=== PATIENT | female | born 1980 | race Caucasian/White ===

== ENCOUNTER → 2020-02-23 | Outpatient (CLI) | payer BC | LOC: MERGE 07:26 → LABNPT 07:26 | PROVIDERS: ATTEND Orthopaedic Surgery | DX: Z20.828 Contact with and (suspected) exposure to other viral communicable diseases (principal) | CPT/HCPCS: 87635 ==

== ENCOUNTER → 2020-04-29 | Outpatient (CLI) | payer BC ==
--- NOTE | 2020-04-29 13:19 | Diagnostic Imaging Report ---
PROCEDURE: CT sinuses without contrast. TECHNIQUE: Multiple contiguous axial images were obtained through the sinuses without the use of intravenous contrast. Coronal and sagittal reformations were then performed. Auto Exposure Controls were utilized during the CT exam to meet ALARA standards for radiation dose reduction. INDICATION: Sinusitis. FINDINGS: There is mucosal thickening in the right half of the frontal sinus. There is significant thickening and opacification of bilateral ethmoid air cells. There is some minimal mucosal thickening involving the sphenoid sinus. The right maxillary sinus is nearly completely opacified. There is a probable large mucus retention cyst or polyp in the inferior left maxillary sinus. Nasal septum is midline. There is opacification of the ostiomeatal complexes bilaterally. Mastoids are well aerated. IMPRESSION: Significant paranasal sinus mucosal disease. Dictated by: Dictated on workstation # [id number]
== END ==
LOC: RAD 12:17
PROVIDERS: ATTEND Otolaryngology Otolaryngology/Facial Plastic Surgery
DX: J32.8 Other chronic sinusitis (principal)
CPT/HCPCS: 70486

== ENCOUNTER 2020-05-11 05:37 | Outpatient (CLI) | payer BC ==
[~2020-05-11] VITALS: Ht 165.1 cm; Wt 92.3 kg
[2020-05-11 09:05] LABS: BASOPHILS % (AUTO) 0 % (0-10); EOSINOPHILS # (AUTO) 0.4 10^3/uL (0.0-0.3); EOSINOPHILS % (AUTO) 5 % (0-10); HEMATOCRIT 39 % (35-52); HEMOGLOBIN 13.4 G/DL (11.5-16.0); LYMPHOCYTES # (AUTO) 2.6 X 10^3 (1.0-4.0); LYMPHOCYTES % (AUTO) 33 % (12-44); MEAN CORPUSCULAR HEMOGLOBIN 31 PG (25-34); MEAN CORPUSCULAR HGB CONC 34 G/DL (32-36); MEAN CORPUSCULAR VOLUME 92 FL (80-99); MEAN PLATELET VOLUME 9.6 FL (7.4-10.4); MONOCYTES # (AUTO) 0.5 X 10^3 (0.0-1.0); MONOCYTES % (AUTO) 6 % (0-12); NEUTROPHILS # (AUTO) 4.4 X 10^3 (1.8-7.8); NEUTROPHILS % (AUTO) 56 % (42-75); PLATELET COUNT 251 10^3/uL (130-400); RED CELL DISTRIBUTION WIDTH 12.9 % (10.0-14.5); WHITE BLOOD COUNT 7.9 10^3/uL (4.3-11.0)
[2020-05-11 09:22] LABS: BUN/CREATININE RATIO 8; CALCIUM 8.4 MG/DL (8.5-10.1); CARBON DIOXIDE 22 MMOL/L (21-32); CHLORIDE 105 MMOL/L (98-107); CREATININE SERUM 0.99 MG/DL (0.60-1.30); GFR ESTIMATED > 60; GLUCOSE 91 MG/DL (70-105); POTASSIUM 3.8 MMOL/L (3.6-5.0); SODIUM 137 MMOL/L (135-145)
[2020-05-11 09:31] VITALS: BP 132/86
== END 2020-05-11 09:47 | disposition home or self-care (01) ==
LOC: PREOP 05:37
PROVIDERS: ATTEND Otolaryngology Otolaryngology/Facial Plastic Surgery
DX: Z01.812 Encounter for preprocedural laboratory examination (principal); J34.2 Deviated nasal septum; J34.3 Hypertrophy of nasal turbinates; J32.9 Chronic sinusitis, unspecified; Z20.828 Contact with and (suspected) exposure to other viral communicable diseases
CPT/HCPCS: 80048; 84703; 85025; 87081; U0002; 36415; 87635

== ENCOUNTER 2020-05-13 06:03 | Day surgery (SDC) | payer BC ==
[2020-05-13] VITALS (11 sets, daily range): BP systolic 105–127; BP diastolic 64–83
[~2020-05-13] VITALS: Ht 165 cm; Wt 92.0 kg
[2020-05-13] MEDS ORDERED: CEFUROXIME INJECTION 750 MG in WATER (STERILE) FOR INJECTION 7.5 ML IV ONE (06:30)
[2020-05-13] MEDS ORDERED: CATHETER FLUSH 10 ML SYR IV PRN (06:30)
[2020-05-13] MEDS ORDERED: HYDROCORTISONE 100 MG/2 ML (Solu-CORTEF) VIAL IV ONE (06:30)
--- NOTE | 2020-05-13 06:30 | Progress Note-Pre Operative ---
Pre-Operative Progress Note H&P Reviewed The H&P was reviewed, patient examined and no changes noted. Date Seen by Provider: May 13, 2020 Time Seen by Provider: 06:30 Date H&P Reviewed: May 13, 2020 Time H&P Reviewed: : Pre-Operative Diagnosis: Bilat Chronic Sinusitis, Bialt Hyper of Inf Turbs, Dev Septum ESTHER ROSARIO MD May 13, 2020 6:30 am
[2020-05-13] MEDS ORDERED: MIDAZOLAM 2 MG/2 ML (VERSED) VIAL ONE ×2 (06:39→07:03)
[2020-05-13] MEDS ORDERED: MIDAZOLAM 2 MG/2 ML (VERSED) VIAL IV ONE (06:45)
[2020-05-13] MEDS: LACTATED RINGERS 1,000 ML IV PRN ×2 (06:48→09:02)
[2020-05-13] MEDS ORDERED: fentaNYL INJECTION 100 MCG/2 ML AMP ONE (07:03)
[2020-05-13] MEDS ORDERED: LIDOCAINE PF 2% 5 ML (XYLOCAINE) VIAL ONE (07:09)
[2020-05-13] MEDS ORDERED: ROCURONIUM 10 MG/ML 5 ML SYRINGE IV ONE (07:09)
[2020-05-13] MEDS ORDERED: ONDANSETRON 4 MG/2 ML (SDV) Z0FRAN ONE (07:09)
[2020-05-13] MEDS ORDERED: proPOfol 200 MG/20 ML (DIPRIVAN) VIAL IV ONE (07:09)
[2020-05-13] MEDS ORDERED: SEVOFLURANE (ULTANE) 15 ML INHAL SOLN ONE ×4 (07:09→08:36)
[2020-05-13] MEDS ORDERED: GLYCOPYRROLATE 0.2 MG/ML (ROBINUL) 2 ML VIAL ONE (07:10)
[2020-05-13] MEDS ORDERED: NEOSTIGMINE 3 MG/3 ML VIAL ONE (07:10)
[2020-05-13] MEDS ORDERED: PHENYLEPHRINE 0.5% NASAL SPR (NEO-SYNEPHRINE) REG ONE (07:12)
[2020-05-13] MEDS ORDERED: COCAINE HCL 4% 2 ML SYR ONE (07:12)
[2020-05-13] MEDS ORDERED: BSS 15 ML ONE (07:12)
[2020-05-13] MEDS ORDERED: LIDOCAINE/EPI 1%-1:100,000 (XYLOCAINE) 20ML ONE (07:13)
[2020-05-13] MEDS ORDERED: D5 1/2 NS W/KCL 20 MEQ/L 1,000 ML IV SCH (08:59)
--- NOTE | 2020-05-13 08:59 | Progress Note-Post Operative ---
Post-Operative Progess Note Surgeon (s)/Therapy Administrative Assistant (s) Surgeon ESTHER ROSARIO MD Therapy Administrative Assistant n/a Pre-Operative Diagnosis Bilat Chronic Sinusitis, Bialt Hyper of Inf Turbs, Dev Septum Post-Operative Diagnosis same Post-Op Procedure Note Date of Procedure: May 13, 2020 Name of Procedure Performed: Bilat ESS, Bilat Red of Inf Turbs Description & Findings Description and Findings: n/a Anesthesia Type get Estimated Blood Loss minimal Packing none. Specimen(s) collected/removed Bialt Nasal polyps, chornic sinus disease ESTHER ROSARIO MD May 13, 2020 08:59
[2020-05-13] MEDS ORDERED: HYDROcodone/APAP 5 MG/325 MG (LORTAB) TAB PO PRN (09:00)
[2020-05-13] MEDS ORDERED: predniSONE 20 MG TAB PO ONE (09:00)
[2020-05-13] MEDS ORDERED: ACETAMINOPHEN 325 MG TABLET PO PRN (09:00)
[2020-05-13] MEDS ORDERED: PROMETHAZINE INJ 25 MG/ML (PHENERGAN) AMP IVP PRN (09:00)
[2020-05-13] MEDS ORDERED: morphine INJ 10 MG/ML 1ML (SYR OR VIAL) ONE (09:25)
[2020-05-13] MEDS ORDERED: MEPERIDINE (DEMEROL) INJ 50 MG/ML IVP ONE (09:30)
[2020-05-13] MEDS ORDERED: morphine INJ 10 MG/ML 1ML (SYR OR VIAL) IVP ONE (09:30)
[2020-05-13] MEDS ORDERED: ONDANSETRON 4 MG/2 ML (SDV) Z0FRAN IVP PRN (09:30)
[2020-05-13] MEDS ORDERED: PRD20T PO (09:59)
[2020-05-13] MEDS ORDERED: HYDR-3812 PO (09:59)
[2020-05-13] MEDS ORDERED: CEFU250T80 PO (09:59)
--- NOTE | 2020-05-13 10:15 | Anesthesia-General Post-Op ---
General Patient Condition Mental Status/LOC: Same as Preop Cardiovascular: Satisfactory Nausea/Vomiting: Absent Respiratory: Satisfactory Pain: Controlled Complications: Absent Post Op Complications Complications None Follow Up Care/Instructions Patient Instructions None needed. Anesthesia/Patient Condition Patient Condition Patient is doing well, no complaints, stable vital signs, no apparent adverse anesthesia problems. No complications reported per nursing. FALGUNI NGUYEN CRNA May 13, 2020 10:15
== END 2020-05-13 11:15 | disposition home or self-care (01) ==
LOC: SDC 06:03
PROVIDERS: ATTEND Otolaryngology Otolaryngology/Facial Plastic Surgery
DX: J32.8 Other chronic sinusitis (principal); J34.3 Hypertrophy of nasal turbinates; J34.2 Deviated nasal septum; R09.81 Nasal congestion; J33.8 Other polyp of sinus; J33.0 Polyp of nasal cavity; J34.89 Other specified disorders of nose and nasal sinuses; Z87.891 Personal history of nicotine dependence; Z88.2 Allergy status to sulfonamides

== ENCOUNTER 2021-10-25 09:05 | Day surgery (SDC) | payer BC, OTHER ==
[2021-10-25] VITALS (10 sets, daily range): BP systolic 85–102; BP diastolic 40–67
[~2021-10-25] VITALS: Ht 165 cm; Wt 86.0 kg
[~2021-10-25 09:05] MED LIST: ACHD5005 PO; CEFU250T80 PO; PRD20T PO
[2021-10-25] MEDS ORDERED: ONDANSETRON 4 MG/2 ML (SDV) Z0FRAN ONE (09:20)
[2021-10-25] MEDS ORDERED: NS IV 1000 ML 1,000 ML IV SCH (09:30)
[2021-10-25] MEDS ORDERED: KETOROLAC 30 MG/ML VIAL IV ONE (09:30)
--- NOTE | 2021-10-25 09:33 | ED GU-Female ---
General Stated Complaint: CRAMPS/LOWER BACK PAIN History of Present Illness Date Seen by Provider: Oct 25, 2021 Time Seen by Provider: 09:05 Initial Comments 41 yr F with no significant PMH, is here with c/o sudden onset of bilateral flank pain and abdominal/ pelvic cramping. Pt states she should be on the last day of her period right now with less mentrual loss. Pt has associated nausea and vomiting, with 3 episodes today, one of them being in the ER. She had one episode of diarrhea early today morning around 1:30AM, and none thereafter. Denies fever, dysuria, vaginal discharge, . Pt states her pain is a 7/10, and is constnat in nature ssince today morning. Pt has not taken any medication for this. Pt also states she drinks a lot of water everyday. No known sick contaccts. Pt is concerned for a kidney stone, which is common in her family. She does not have a history of a kidney stone in the past. Allergies and Home Medications Allergies Coded Allergies: Sulfa (Sulfonamide Antibiotics) (Verified Allergy, Unknown, "FEELS LIKE BURNING FROM INSIDE OUT, 05/11/20) Patient Home Medication List Home Medication List Reviewed: Yes Cefuroxime Axetil (Cefuroxime) 250 Mg Tablet, 250 MG PO BID Prescribed by: CARLOS COLLIER on 05/13/20958 Hydrocodone/Acetaminophen (Hydrocodone-Acetamin 5-325 mg) 1 Each Tablet, 1-2 EACH PO Q4H Prescribed by: CARLOS COLLIER on 05/13/20958 Prednisone (Prednisone) 20 Mg Tab, 0 PO UD Prescribed by: CARLOS COLLIER on 05/13/20958 Review of Systems Review of Systems Constitutional: no symptoms reported EENTM: no symptoms reported Respiratory: no symptoms reported Cardiovascular: no symptoms reported Gastrointestinal: RLQ, LLQ, diarrhea, nausea, vomiting Genitourinary: flank pain Musculoskeletal: no symptoms reported Skin: no symptoms reported All Other Systemes Reviewed Negative Unless Noted: Yes Past Rxmcjcz-Vpbire-Kvtaeh Hx Seasonal Allergies Seasonal Allergies: Yes Past Medical History Surgeries: Yes (D&C X2, L KNEE SCOPE X2) Tubal Ligation Respiratory: No Currently Using CPAP: No Currently Using BIPAP: No Cardiac: No Neurological: No Genitourinary: No Gastrointestinal: No Musculoskeletal: No Endocrine: No Cancer: No Psychosocial: No Integumentary: No Blood Disorders: No Physical Exam Vital Signs Vital Signs - First Documented 10/25/21 09:34 Temp 36.1 Pulse 64 Resp 18 B/P (MAP) 112/70 (84) Pulse Ox 93 Capillary Refill : Height, Weight, BMI Height: '" Weight: lbs. oz. kg; 33.79 BMI Method: General Appearance: mild distress HEENT: PERRL/EOMI Cardiovascular: normal peripheral pulses, regular rate, rhythm Respiratory: chest non-tender, lungs clear, normal breath sounds Gastrointestinal: normal bowel sounds, soft, no organomegaly, no pulsatile mass, tenderness (in bilateral pelvoc area), other (bilaterl CVA tenderness, gretaer on he left side) Back: no vertebral tenderness, CVA tenderness (R), CVA tenderness (L) (greater on the left) Extremities: normal range of motion Neurologic/Psychiatric: no motor/sensory deficits, alert, oriented x 3 Skin: normal color Lymphatic: no adenopathy Focused Exam Lactate Level 10/25/21 10:31: Lactic Acid Level 1.44 Lactic Acid Level Laboratory Tests Test 10/25/21 10:31 Lactic Acid Level 1.44 MMOL/L (0.50-2.00) Progress/Results/Core Measures Suspected Sepsis SIRS Temperature: Pulse: Respiratory Rate: Laboratory Tests 10/25/21 09:30: White Blood Count 16.6H Blood Pressure / Mean: 10/25/21 10:31: Lactic Acid Level 1.44 Laboratory Tests 10/25/21 09:30: Creatinine 1.11, Platelet Count 239, Total Bilirubin 0.5 Results/Orders Lab Results Laboratory Tests Test 10/25/21 09:30 10/25/21 09:55 10/25/21 10:31 Range/Units White Blood Count 16.6 H 4.3-11.0 10^3/uL Red Blood Count 4.34 3.80-5.11 10^6/uL Hemoglobin 13.5 11.5-16.0 g/dL Hematocrit 41 35-52 % Mean Corpuscular Volume 95 80-99 fL Mean Corpuscular Hemoglobin 31 25-34 pg Mean Corpuscular Hemoglobin Concent 33 32-36 g/dL Red Cell Distribution Width 12.1 10.0-14.5 % Platelet Count 239 130-400 10^3/uL Mean Platelet Volume 10.1 9.0-12.2 fL Immature Granulocyte % (Auto) 1 % Neutrophils (%) (Auto) 77 H 42-75 % Lymphocytes (%) (Auto) 15 12-44 % Monocytes (%) (Auto) 6 0-12 % Eosinophils (%) (Auto) 2 0-10 % Basophils (%) (Auto) 0 0-10 % Neutrophils # (Auto) 12.8 H 1.8-7.8 10^3/uL Lymphocytes # (Auto) 2.5 1.0-4.0 10^3/uL Monocytes # (Auto) 1.0 0.0-1.0 10^3/uL Eosinophils # (Auto) 0.3 0.0-0.3 10^3/uL Basophils # (Auto) 0.1 0.0-0.1 10^3/uL Immature Granulocyte # (Auto) 0.1 0.0-0.1 10^3/uL Neutrophils % (Manual) 69 % Lymphocytes % (Manual) 15 % Monocytes % (Manual) 7 % Basophils % (Manual) 2 % Reactive Lymphocytes 7 % Blood Morphology Comment NORMAL Sodium Level 137 135-145 MMOL/L Potassium Level 4.0 3.6-5.0 MMOL/L Chloride Level 104 98-107 MMOL/L Carbon Dioxide Level 23 21-32 MMOL/L Anion Gap 10 5-14 MMOL/L Blood Urea Nitrogen 13 7-18 MG/DL Creatinine 1.11 0.60-1.30 MG/DL Estimat Glomerular Filtration Rate 65 BUN/Creatinine Ratio 12 Glucose Level 103 70-105 MG/DL Calcium Level 9.0 8.5-10.1 MG/DL Corrected Calcium 8.8 8.5-10.1 MG/DL Magnesium Level 2.0 1.6-2.4 MG/DL Total Bilirubin 0.5 0.1-1.0 MG/DL Aspartate Amino Transf (AST/SGOT) 42 H 5-34 U/L Alanine Aminotransferase (ALT/SGPT) 80 H 0-55 U/L Alkaline Phosphatase 87 40-136 U/L Total Protein 7.9 6.4-8.2 GM/DL Albumin 4.2 3.2-4.5 GM/DL Lipase 21 8-78 U/L Urine Color YELLOW Urine Clarity CLEAR Urine pH 6.0 5-9 Urine Specific [place] 1.020 1.016-1.022 Urine Protein NEGATIVE NEGATIVE Urine Glucose (UA) NEGATIVE NEGATIVE Urine Ketones NEGATIVE NEGATIVE Urine Nitrite NEGATIVE NEGATIVE Urine Bilirubin NEGATIVE NEGATIVE Urine Urobilinogen 0.2 < = 1.0 MG/DL Urine Leukocyte Esterase TRACE H NEGATIVE Urine RBC (Auto) NEGATIVE NEGATIVE Urine RBC RARE /HPF Urine WBC 2-5 /HPF Urine Squamous Epithelial Cells 2-5 /HPF Urine Crystals NONE /LPF Urine Bacteria MODERATE H /HPF Urine Casts NONE /LPF Urine Mucus NEGATIVE /LPF Urine Culture Indicated YES Lactic Acid Level 1.44 0.50-2.00 MMOL/L My Orders Orders - VALENCIA LI MD Urine Bedside (10/25/21 09:24) Ct Abd/Pelvis Wo(Kidney Stone) (10/25/21 09:24) Ed Iv/Invasive Line Start (10/25/21 09:24) Ua Culture If Indicated (10/25/21 09:24) Ketorolac Injection (Toradol Injection) (10/25/21 09:30) Ed Iv/Invasive Line Start (10/25/21 09:24) Ns Iv 1000 Ml (Sodium Chloride 0.9%) (10/25/21 09:30) Cbc With Automated Diff (10/25/21 09:39) Comprehensive Metabolic Panel (10/25/21 09:39) Magnesium (10/25/21 09:39) Ondansetron Injection (Zofran Injectio (10/25/21 09:45) Metoclopramide Injection (Reglan Injecti (10/25/21 09:44) Manual Differential (10/25/21 09:30) Lipase (10/25/21 10:19) Blood Culture (10/25/21 10:20) Lactic Acid Analyzer (10/25/21 10:20) Ceftriaxone 1 Gm Pre-Mix (Rocephin 1 Gm (10/25/21 10:30) Ct Abd/Pelv W (Appendicitis) (10/25/21 10:26) Urine Culture (10/25/21 09:55) Iohexol Injection (Omnipaque 350 Mg/Ml 1 (10/25/21 10:45) Di Iv Start (Assessment) .IV start (10/25/21 10:33) Received Contrast (Hold Metformin- Contr (10/25/21 10:45) Sodium Chloride Flush (Catheter Flush Sy (10/25/21 10:45) Ns (Ivpb) (Sodium Chloride 0.9% Ivpb Bag (10/25/21 10:45) Medications Given in ED Current Medications Medications Dose Ordered Sig/Liam Route Start Time Stop Time Status Last Admin Dose Admin Ceftriaxone Sodium/Dextrose 50 ml @ 100 mls/hr ONCE ONCE IV 10/25/21 10:30 10/25/21 10:59 DC 10/25/21 10:50 100 MLS/HR Iohexol 100 ml ONCE ONCE IV 10/25/21 10:45 10/25/21 10:52 DC 10/25/21 10:39 100 ML Ketorolac Tromethamine 15 mg ONCE ONCE IV 10/25/21 09:30 10/25/21 09:31 DC 10/25/21 10:01 15 MG Ondansetron HCl 8 mg ONCE ONCE IVP 10/25/21 09:45 10/25/21 09:47 DC 10/25/21 10:02 8 MG Sodium Chloride 10 ml NEEDED PRN IV 10/25/21 10:45 10/25/21 10:39 10 ML Sodium Chloride 100 ml ONCE ONCE IV 10/25/21 10:45 10/25/21 10:52 DC 10/25/21 10:39 80 ML Vital Signs/I&O 10/25/21 09:34 Temp 36.1 Pulse 64 Resp 18 B/P (MAP) 112/70 (84) Pulse Ox 93 Capillary Refill : Progress Note : Progress Note 1. ACUTE APPENDICITIS: - Toradol 15mg iv STAT with successful pain relief - Zofran 8mg iv STAT without resolution of symptoms, and then added Reglan 10mg iv STAT - NS 1L STAT - CT abd/ pelvis without contrast: discussed with radiologist and suspect possible left ureter stone and possible appendicitis with starnding. Radiology recommended to do CT with contrast. - CT ABD/ PELVIS WITH CONTRAST: see below - UA: trace LE and bacteria - CBC shows an elevated WBC of 16 with a left shift. Blood culture and lactic acid ordered. - Ceftriaxone 1gm iv STAT - CMP: AST and ALT elevated - urine test - Discussed with surgery, Dr. Land. Pt will be going to OR for appendectomy. Pt's last meal was last night. - Discussed with pt and pt agrees with plan. Diagnostic Imaging Diagonstic Imaging: CT Plain Films/CT/US/NM/MRI: abdomen, pelvis Comments 1. Findings suspicious for early or mild acute appendicitis. 2. Punctate left calculus within the lower left pelvis. Again, this may be on the basis of an underlying phlebolith. A distal ureteral calculus cannot be entirely excluded as a separate ureter cannot be identified. Correlation with a post contrast CT with delayed images through the pelvis may be of benefit. Reviewed: Reviewed by Me, Discussed w/Radiologist Departure Communication (Admissions) Time/Spoke to Admitting Phy: 12:00 Impression Primary Impression: Appendicitis Qualified Codes: K35.80 - Unspecified acute appendicitis Disposition: ADMITTED INPATIENT Condition: Stable Admissions Decision to Admit Reason: Admit from ER (General) Decision to Admit/Date: Oct 25, 2021 Time/Decision to Admit Time: 12:10 Departure-Patient Inst. Referrals: NO,LOCAL PHYSICIAN (PCP/Family) Primary Care Physician VALENCIA LI MD Oct 25, 2021 09:33
[2021-10-25] MEDS ORDERED: METOCLOPRAMIDE INJ 10 MG/2 ML (REGLAN) IVP STA (09:44)
[2021-10-25] MEDS ORDERED: ONDANSETRON 4 MG/2 ML (SDV) Z0FRAN IVP ONE (09:45)
[2021-10-25 09:47] LABS: BASOPHILS # (AUTO) 0.1 10^3/uL (0.0-0.1); BASOPHILS % (AUTO) 0 % (0-10); EOSINOPHILS # (AUTO) 0.3 10^3/uL (0.0-0.3); EOSINOPHILS % (AUTO) 2 % (0-10); HEMATOCRIT 41 % (35-52); HEMOGLOBIN 13.5 g/dL (11.5-16.0); LYMPHOCYTES # (AUTO) 2.5 10^3/uL (1.0-4.0); LYMPHOCYTES % (AUTO) 15 % (12-44); MEAN CORPUSCULAR HEMOGLOBIN 31 pg (25-34); MEAN CORPUSCULAR HGB CONC 33 g/dL (32-36); MEAN CORPUSCULAR VOLUME 95 fL (80-99); MEAN PLATELET VOLUME 10.1 fL (9.0-12.2); MONOCYTES % (AUTO) 6 % (0-12); NEUTROPHILS # (AUTO) 12.8 10^3/uL (1.8-7.8); NEUTROPHILS % (AUTO) 77 % (42-75); PLATELET COUNT 239 10^3/uL (130-400); WHITE BLOOD COUNT 16.6 10^3/uL (4.3-11.0)
[2021-10-25 09:51] LABS: ALBUMIN 4.2 GM/DL (3.2-4.5)
[2021-10-25 09:54] LABS: TOTAL PROTEIN 7.9 GM/DL (6.4-8.2)
[2021-10-25 09:55] LABS: BILIRUBIN,TOTAL 0.5 MG/DL (0.1-1.0)
[2021-10-25 09:57] LABS: CREATININE SERUM 1.11 MG/DL (0.60-1.30)
[2021-10-25 10:16] LABS: BILIRUBIN,URINE NEGATIVE (NEGATIVE); CLARITY,URINE CLEAR; COLOR,URINE YELLOW; GLUCOSE, URINE (UA) NEGATIVE (NEGATIVE); KETONES,URINE NEGATIVE (NEGATIVE); LEUKOCYTE ESTERASE ,URINE TRACE (NEGATIVE); NITRITE,URINE NEGATIVE (NEGATIVE); PROTEIN,URINE NEGATIVE (NEGATIVE)
[2021-10-25 10:29] LABS: BACTERIA,URINE MODERATE /HPF; RBC,URINE RARE /HPF
[2021-10-25] MEDS ORDERED: cefTRIAXone 1 GM PRE-MIX 50 ML IV ONE (10:30)
--- NOTE | 2021-10-25 10:35 | Diagnostic Imaging Report ---
PROCEDURE: CT urinary tract, rule out kidney stone. TECHNIQUE: Multiple contiguous axial images were obtained through the abdomen and pelvis without the use of intravenous contrast. Auto Exposure Controls were utilized during the CT exam to meet ALARA standards for radiation dose reduction. INDICATION: Lower abdominal pain. Left flank pain. Nausea and vomiting. COMPARISON: None. FINDINGS: The included portions of the lung bases are clear. CT ABDOMEN: The appendix is abnormally prominent. It measures 9 to 10 mm in diameter. There is also slight stranding of the periappendiceal fat. The findings do raise concern for early or mild acute appendicitis. There is no free fluid within the abdomen. There is no loculated fluid collection or free air. The proximal small bowel loops are not distended. No renal calculi are seen on either side. Additionally, there is no hydroureteronephrosis. The ureters are difficult to follow in a contiguous fashion. There is a punctate 2 mm calculus within the lower left pelvis posterior to the urinary bladder. While this may represent an unrelated phlebolith, a separate normal ureter cannot be identified. A distal ureteral calculus cannot be entirely excluded. The kidneys have an otherwise unremarkable noncontrast CT appearance. Chronic dystrophic calcifications of the left adrenal gland are noted. The right adrenal gland, spleen, pancreas, and liver have an unremarkable noncontrast CT appearance. No abnormal mesenteric or retroperitoneal adenopathy is seen. The osseous structures show no acute abnormalities. CT PELVIS: The urinary bladder is unopacified. No calculi are seen within the urinary bladder. Again, there is a left pelvic phlebolith versus less likely a distal left ureteral calculus. There is no loculated fluid collection, free fluid, or free air within the pelvis. No abnormal adenopathy is seen. The osseous structures show no acute abnormalities. IMPRESSION: 1. Findings suspicious for early or mild acute appendicitis. 2. Punctate left calculus within the lower left pelvis. Again, this may be on the basis of an underlying phlebolith. A distal ureteral calculus cannot be entirely excluded as a separate ureter cannot be identified. Correlation with a post contrast CT with delayed images through the pelvis may be of benefit. 3. These results were called to Dr. Brennan by Dr. Schwartz at 1025 hours on 10/25/2021. Dictated by: Dictated on workstation # [id number]
[2021-10-25 10:45] LABS: LYMPHOCYTES % (MANUAL) 15 %; MONOCYTES % (MANUAL) 7 %; NEUTROPHILS % (MANUAL) 69 %
[2021-10-25] MEDS ORDERED: HOLD METFORMIN - RECEIVED CONTRAST 20 ML VIAL IV SCH (10:45)
[2021-10-25] MEDS ORDERED: CATHETER FLUSH 10 ML SYR IV PRN (10:45)
[2021-10-25] MEDS ORDERED: IOHEXOL 350 MG/ML 100 ML (OMNIPAQUE 350) VIAL IV ONE (10:45)
[2021-10-25] MEDS ORDERED: NS 100 ML (IVPB) BAG IV ONE (10:45)
[2021-10-25 10:46] LABS: BASOPHILS % (MANUAL) 2 %; REACTIVE LYMPHOCYTES 7 %
[2021-10-25 10:47] LABS: RBC MORPH NORMAL
--- NOTE | 2021-10-25 11:52 | Diagnostic Imaging Report ---
PROCEDURE: CT abdomen and pelvis with contrast, rule out appendicitis. TECHNIQUE: Multiple contiguous axial images were obtained through the abdomen and pelvis after the administration of intravenous contrast. All CT scans use one or more of the following dose optimizing techniques: automated exposure control, MA and/or KvP adjustment based on patient size and exam type or iterative reconstruction. INDICATION: Leukocytosis. Abdominal pain. Nausea and vomiting. COMPARISON: Noncontrast CT from earlier same day FINDINGS: Included portions of lung bases remain clear. CT ABDOMEN: Chronic dystrophic calcifications of the left adrenal gland are again noted. Otherwise, adrenal glands, spleen, pancreas, kidneys, and liver have a normal CT appearance. There is no hydronephrosis. Delayed images show the left pelvic calcification described on CT from earlier same day to reside outside the ureter consistent with phlebolith. No other obstructive lesions or intraluminal filling defects are seen on the delayed sequence. Appendix is again identified and continues to have mildly abnormal appearance. It is mildly abnormally distended, as it measures 9 mm. Postcontrast images suggest mucosal hyperenhancement. There is small amount of periappendiceal free fluid within the anterior right lower abdominal quadrant. There is also mild stranding of periappendiceal fat. There is no loculated fluid collection or free air. Proximal small bowel loops are nondistended. No abnormal mesenteric or retroperitoneal adenopathy is seen. Osseous structures show no acute abnormalities. CT PELVIS: Urinary bladder is grossly unremarkable. There is no loculated fluid collection, free fluid or free air within the pelvis. No abnormal lymph nodes are seen. Osseous structures show no acute abnormalities. IMPRESSION: 1. Findings consistent with early or mild acute appendicitis. 2. Left pelvic calcification seen on CT from earlier same day is shown to represent phleboliths. Kidneys and renal collecting systems have an otherwise normal CT appearance. 3. Trace amount of free fluid within the right lower abdominal quadrant. No loculated fluid collection or evidence of abscess. Results called to Dr. Brennan by Dr. Schwartz at 1145 hours on 10/25/2021. Dictated by: Dictated on workstation # [id number]
--- NOTE | 2021-10-25 12:34 | Consultation - Surgery ---
MAURIZIO LENNON 10/25/21 1234: History of Present Illness History of Present Illness Patient Consulted On(ramesh/time) 10/25/21 12:29 Date Seen by Provider: Oct 25, 2021 Time Seen by Provider: 12:15 Reason for Visit: cramping and back pain, vomiting History of Present Illness Consult requested by ED for appendectomy. 41 yo female presented to ER with constant abdominal cramping, intermittent back pain, and vomiting that started this morning. The pain was 10/10 at its worst, 3/10 currently. Pt vomited 4-5x. Pt notes a couple days ago she had sharp pains in her RLQ, but they went away. Pt last ate at dinner last night, and had one sip of coffee with cream around 7am this morning. CT Abd/pelvis showed early/acute appendicitis. Allergies and Home Medications Allergies Coded Allergies: Sulfa (Sulfonamide Antibiotics) (Verified Allergy, Unknown, "FEELS LIKE BURNING FROM INSIDE OUT, 05/11/20) Patient Home Medication List Cefuroxime Axetil (Cefuroxime) 250 Mg Tablet, 250 MG PO BID Prescribed by: CARLOS COLLIER on 05/13/20 0959 Hydrocodone/Acetaminophen (Hydrocodone-Acetamin 5-325 mg) 1 Each Tablet, 1-2 EACH PO Q4H Prescribed by: CARLOS COLLIER on 05/13/20 0959 Prednisone (Prednisone) 20 Mg Tab, 0 PO UD Prescribed by: CARLOS COLLIER on 05/13/20 0959 Past Vhzmcgi-Qwwtci-Otadms Hx Patient Social History Type Used: Cigarettes Recent Hopitalizations: No Alcohol Use?: Yes Have you traveled recently?: No Seasonal Allergies Seasonal Allergies: Yes Surgeries History of Surgeries: Yes (D&C X2, L KNEE SCOPE X2) Surgeries: Orthopedic (2 knee surgeries), Tubal Ligation Respiratory History of Respiratory Disorde: No Cardiovascular History of Cardiac Disorders: No Neurological History of Neurological Disord: No Genitourinary History of Genitourinary Disor: No Gastrointestinal History of Gastrointestinal Di: No Musculoskeletal History of Musculoskeletal Dis: No Endocrine History of Endocrine Disorders: No Cancer History of Cancer: No Psychosocial History of Psychiatric Problem: No Integumentary History of Skin or Integumenta: No Blood Transfusions History of Blood Disorders: No Family Medical History Significant Family History: Heart Disease (grandma and grandpa), Diabetes (grandma and grandpa), Hypertension (mom) Review of Systems-General Constitutional: No chills, No fever EENTM: No hearing loss, No blurred vision Respiratory: No cough, No dyspnea on exertion Cardiovascular: No chest pain, No palpitations Gastrointestinal: RLQ, abdominal pain, loss of appetite, nausea, vomiting Genitourinary: No dysuria, No frequency Musculoskeletal: back pain; No muscle pain Skin: No lesions, No rash Psychiatric/Neurological: Denies Headache, Denies Weakness Physical Exam-General Problems Physical Exam Vital Signs Vital Signs - First Documented 10/25/21 09:34 Temp 36.1 Pulse 64 Resp 18 B/P (MAP) 112/70 (84) Pulse Ox 93 Capillary Refill : Less Than 3 Seconds General Appearance: WD/WN, no apparent distress Eyes: Bilateral Eye Normal Inspection HEENT: PERRL/EOMI Respiratory: lungs clear, normal breath sounds, no respiratory distress Cardiovascular: regular rate, rhythm, no murmur Peripheral Pulses: 3+ Dorsalis Pedis (R), 3+ Left Dors-Pedis (L), 3+ Radial Pulses (R), 3+ Radial Pulses (L) Gastrointestinal: soft, guarding (RLQ), tenderness (RLQ) Extremities: normal inspection, no pedal edema Neurologic/Psychiatric: alert, normal mood/affect, oriented x 3 Skin: normal color, warm/dry Data Review Labs Laboratory Tests 10/25/21 09:30: White Blood Count 16.6H, Red Blood Count 4.34, Hemoglobin 13.5, Hematocrit 41, Mean Corpuscular Volume 95, Mean Corpuscular Hemoglobin 31, Mean Corpuscular Hemoglobin Concent 33, Red Cell Distribution Width 12.1, Platelet Count 239, Mean Platelet Volume 10.1, Immature Granulocyte % (Auto) 1, Neutrophils (%) (Auto) 77H, Lymphocytes (%) (Auto) 15, Monocytes (%) (Auto) 6, Eosinophils (%) (Auto) 2, Basophils (%) (Auto) 0, Neutrophils # (Auto) 12.8H, Lymphocytes # (Auto) 2.5, Monocytes # (Auto) 1.0, Eosinophils # (Auto) 0.3, Basophils # (Auto) 0.1, Immature Granulocyte # (Auto) 0.1, Neutrophils % (Manual) 69, Lymphocytes % (Manual) 15, Monocytes % (Manual) 7, Basophils % (Manual) 2, Reactive Lymphocytes 7, Blood Morphology Comment NORMAL, Sodium Level 137, Potassium Level 4.0, Chloride Level 104, Carbon Dioxide Level 23, Anion Gap 10, Blood Urea Nitrogen 13, Creatinine 1.11, Estimat Glomerular Filtration Rate 65, BUN/Creatinine Ratio 12, Glucose Level 103, Calcium Level 9.0, Corrected Calcium 8.8, Magnesium Level 2.0, Total Bilirubin 0.5, Aspartate Amino Transf (AST/SGOT) 42H, Alanine Aminotransferase (ALT/SGPT) 80H, Alkaline Phosphatase 87, Total Protein 7.9, Albumin 4.2, Lipase 21 10/25/21 09:55: Urine Color YELLOW, Urine Clarity CLEAR, Urine pH 6.0, Urine Specific [place] 1.020, Urine Protein NEGATIVE, Urine Glucose (UA) NEGATIVE, Urine Ketones NEG ATIVE, Urine Nitrite NEGATIVE, Urine Bilirubin NEGATIVE, Urine Urobilinogen 0.2, Urine Leukocyte Esterase TRACEH, Urine RBC (Auto) NEGATIVE, Urine RBC RARE, Urine WBC 2-5, Urine Squamous Epithelial Cells 2-5, Urine Crystals NONE, Urine Bacteria MODERATEH, Urine Casts NONE, Urine Mucus NEGATIVE, Urine Culture Indicated YES 10/25/21 10:31: Lactic Acid Level 1.44 Assessment/Plan Assessment/Plan Assessment/Plan Abdominal Cramping Back pain N/V Leukocytosis Laproscopic Appendectomy IVFs NPO currently LANDVEE Rahul DO 10/25/21 1419: History of Present Illness History of Present Illness History of Present Illness CC: rlq abd pain. 41 year old female with abdominal pain diffuse then moved to [facility]. No radiation of pain. 06/26 at worse. Nausea and emesis. Started this morning. Decided to go to ER for further evaluation. Movmement worse. Ct scan consistent with early appendicitis. Allergies and Home Medications Allergies Coded Allergies: Sulfa (Sulfonamide Antibiotics) (Verified Allergy, Unknown, "FEELS LIKE BURNING FROM INSIDE OUT, 05/11/20) Patient Home Medication List Home Medication List Reviewed: Yes Cefuroxime Axetil (Cefuroxime) 250 Mg Tablet, 250 MG PO BID Prescribed by: CARLOS COLLIER on 05/13/20 0970 Hydrocodone/Acetaminophen (Hydrocodone-Acetamin 5-325 mg) 1 Each Tablet, 1-2 EACH PO Q4H Prescribed by: CARLOS COLLIER on 05/13/20958 Prednisone (Prednisone) 20 Mg Tab, 0 PO UD Prescribed by: CARLOS COLLIER on 05/13/20958 Past Gjyxcjj-Ngyncr-Tcqcua Hx Patient Social History Type Used: Electronic/Vapor Surgeries Surgeries: Nose, Orthopedic (2 knee surgeries), Tubal Ligation Reviewed Nursing Assessment Reviewed/Agree w Nursing PMH: Yes Family Medical History Significant Family History: No Pertinent Family Hx Review of Systems-General Constitutional: No chills, No fever EENTM: No hearing loss, No blurred vision Respiratory: No cough, No dyspnea on exertion Cardiovascular: No chest pain, No palpitations Gastrointestinal: abdominal pain (RLQ), nausea, vomiting Genitourinary: No dysuria, No frequency Musculoskeletal: back pain; No muscle pain Skin: No lesions, No rash Psychiatric/Neurological: Denies Headache, Denies Weakness All Other Systems Reviewed Negative Unless Noted: Yes (Negative excepted noted.) Physical Exam-General Problems Physical Exam General Appearance: WD/WN, no apparent distress HEENT: PERRL/EOMI Neck: supple, normal inspection Respiratory: chest non-tender, no respiratory distress, no accessory muscle use Cardiovascular: regular rate, rhythm, no JVD Gastrointestinal: soft; No guarding (RLQ); tenderness (RLQ) Back: no CVA tenderness, no vertebral tenderness Extremities: normal inspection, no pedal edema Neurologic/Psychiatric: alert, normal mood/affect, oriented x 3 Skin: normal color, warm/dry Lymphatic: no adenopathy Assessment/Plan Assessment/Plan Assessment/Plan RLQ abd pain appendicitis Nausea and vomiting. Discussed risks and benefits of laparoscopic appendectomy all other indicated procedures. She understands and wishes to proceed. TO oR NPO ABX Supervisory-Addendum Brief Verification & Attestation Participated in pt care: history, MDM, physical Personally performed: exam, history, MDM, supervision of care Care discussed with: Medical Student Procedures: n/a Results interpretation: Verified all documentation Verification and Attestation of Medical Student E/M Service A medical student performed and documented this service in my presence. I reviewed and verified all information documented by the medical student and made modifications to such information, when appropriate. I personally performed the physical exam and medical decision making. Vee Land, Oct 25, 2021,14:19 MAURIZIO LENNON Oct 25, 2021 12:34 VEE LAND DO Oct 25, 2021 14:19
[2021-10-25] MEDS ORDERED: LIDOCAINE/EPI 1%-1:200,000 (XYLOCAINE) 30 ML VIAL ONE (12:41)
[2021-10-25] MEDS ORDERED: ceFAZolin 2 GM IV Premixed 50 ML IV ONE (12:45)
[2021-10-25] MEDS ORDERED: LACTATED RINGERS 1,000 ML IV SCH (12:45)
[2021-10-25] MEDS ORDERED: LIDOCAINE PF 2% 5 ML (XYLOCAINE) VIAL ONE (13:18)
[2021-10-25] MEDS ORDERED: proPOfol 200 MG/20 ML (DIPRIVAN) VIAL IV ONE (13:18)
[2021-10-25] MEDS ORDERED: fentaNYL INJ 100 MCG/2 ML AMP ONE (13:18)
[2021-10-25] MEDS ORDERED: ROCURONIUM 50 MG/5 ML (ZEMURON) VIAL IV ONE (13:18)
[2021-10-25] MEDS ORDERED: SEVOFLURANE (ULTANE) 15 ML INHAL SOLN ONE (13:18)
[2021-10-25] MEDS ORDERED: MIDAZOLAM 2 MG/2 ML (VERSED) VIAL ONE (13:19)
[2021-10-25] MEDS: LACTATED RINGERS 1,000 ML IV PRN ×2 (13:30→14:25)
[2021-10-25] MEDS ORDERED: ceFAZolin INJECTION 2,000 MG ONE (13:32)
[2021-10-25] MEDS ORDERED: NEOSTIGMINE 3 MG/3 ML VIAL ONE (14:39)
[2021-10-25] MEDS ORDERED: GLYCOPYRROLATE 0.2 MG/ML (ROBINUL) 2 ML VIAL ONE (14:39)
--- NOTE | 2021-10-25 14:57 | Anesthesia-General Post-Op ---
General Patient Condition Mental Status/LOC: Same as Preop Cardiovascular: Satisfactory Nausea/Vomiting: Absent Respiratory: Satisfactory Pain: Controlled Complications: Absent Post Op Complications Complications None Follow Up Care/Instructions Patient Instructions None needed. Anesthesia/Patient Condition Patient Condition Patient is doing well, no complaints, stable vital signs, no apparent adverse anesthesia problems. No complications reported per nursing. LUIS BARRERA CRNA Oct 25, 2021 14:57
[2021-10-25] MEDS ORDERED: MEPERIDINE (DEMEROL) INJ 50 MG/ML IVP ONE (15:00)
[2021-10-25] MEDS ORDERED: ONDANSETRON 4 MG/2 ML (SDV) Z0FRAN IVP PRN (15:00)
[2021-10-25] MEDS ORDERED: PROMETHAZINE INJ 25 MG/ML (PHENERGAN) AMP IVP ONE (15:00)
[2021-10-25] MEDS ORDERED: HYDROmorphone 2 MG/ML VIAL (DILAUDID) IV ONE (15:00)
[2021-10-25] MEDS ORDERED: morphine INJ 10 MG/ML 1ML (SYR OR VIAL) IVP ONE (15:00)
[2021-10-25] MEDS ORDERED: morphine INJ 10 MG/ML 1ML (SYR OR VIAL) ONE (15:26)
[2021-10-25] MEDS ORDERED: DOCU-143 PO (15:35)
[2021-10-25] MEDS ORDERED: ACHD5005 PO (15:35)
--- NOTE | 2021-10-25 15:36 | Discharge Inst-Simple/Standard ---
Discharge Inst-Standard Discharge Medications New, Converted or Re-Newed RX: Transmitted to Pharmacy Patient Instructions/Follow Up Plan of Care/Instructions/FU: 2 weeks Shanda Activity as Tolerated: No Discharge Diet: Regular Diet Other Inst to Patient Follow up Appt: Make appointment for 2 week. Instructions: No lifting greater than 10 pounds. No strenuous activity. May shower in 24 hours, no tub bath or soaking. Use incentive spirometer at home as directed. No Smoking Skin/Wound Care: You have special glue over your incision that will fall off on it's own. Symptoms to Report: Appetite Changes, Extremity Discoloration, Numbness/Tingling, Swelling Increased, Bleeding Excessive, Eyesight Changes, Pain Increased, Urine Color Change, Constipation(Persistent), Fever over 101 degree F, Pain/Pressure in chest, Urinating Difficulty, Cough Up/Vomit Blood, Heart Beat Irreg/Pounding, Pain/Pressure in jaw, Vaginal Bleeding Increase, Cramps in feet or legs, Lightheadedness, Pain/Pressure in shoulder, Diarrhea(Persistent), Memory Changes Suddenly, Questions/Concerns, Weight gain consecutive days, Dizziness/Fainting, Nausea/Vomiting, Shortness of Breath, Weight gain over 2 pounds If questions or concerns contact your physician Or seek help at emergency department. VEE BRITO DO Oct 25, 2021 15:36
--- NOTE | 2021-10-25 15:37 | Progress Note-Post Operative ---
Post-Operative Progess Note Surgeon (s)/Health And Human Performance Professor (s) Surgeon VEE BRITO DO Health And Human Performance Professor: na Pre-Operative Diagnosis appendicitis Post-Operative Diagnosis same Procedure & Operative Findings Date of Procedure 10/25/21 Procedure Performed/Findings PROCEDURE: Laparoscopic appendectomy. COMPLICATIONS: None. INDICATIONS: The patient is a 41 year old female who has been having right lower quadrant abdominal pain. Patient's exam consistent with appendicitis. I discussed risk and benefits of laparoscopic appendectomy and all indicated procedures with the possibility being a normal appendix. The patient understands the risks and benefits and wishes to proceed. Consent was signed on the chart. DESCRIPTION OF PROCEDURE: The patient was taken to the operating suite, prepped and draped in a sterile fashion. Timeout was performed. Local anesthetic was infiltrated just above the umbilicus and 11-blade scalpel was used to make a skin incision. Cautery was used to dissect down to the fascia and scored. Kochers were used to grasp and elevate it and the abdomen was then entered. A 0 Vicryl was placed in a [id number] fashion for closure at the end of the case. The balloon trocar was inserted into the abdomen and pneumoperitoneum was achieved. Under direct visualization of the laparoscope, a 5 mm trocar was placed in the suprapubic region and a 5 mm trocar was placed in the left lower quadrant. Appendix was located, inflamed appendix. The base of the appendix was dissected around. Once at the base an Endo-WILLIAM 2.5 stapler was then fired across the base of the appendix. The mesoappendix was then divided. It was then placed in an Endobag and removed through the 12 mm trocar site. The abdomen was then irrigated and suctioned. No other pathology noted. The abdomen was then desufflated and the trocars were removed. The 0 Vicryl placed at the beginning of the case was then tied closing the 12 mm fascial defect. The skin was then closed using 4-0 Monocryl in a subcuticular fashion. The abdomen was then washed and dried and Skin Affix was placed over the incisions. The patient tolerated the procedure well without any complications and was taken to the recovery room in stable condition. Anesthesia Type general Estimated Blood Loss Estimated blood loss (mL): minimal Specimens/Packing Specimens Removed appendix VEE BRITO DO Oct 25, 2021 15:37
== END 2021-10-25 16:50 | disposition home or self-care (01) ==
LOC: EDUNIT# 09:05 → ER 09:06 → SDC 12:12
PROVIDERS: ATTEND Surgery
DX: K35.80 Unspecified acute appendicitis (principal); E66.9 Obesity, unspecified; Z68.31 Body mass index [BMI] 31.0-31.9, adult; F17.210 Nicotine dependence, cigarettes, uncomplicated
CPT/HCPCS: 36415; 36430; 74176; 74177; 80053; 81000; 83605; 83690; 83735; 84703; 85007; 85027; 87040; 87077; 87088; 87186; 88304

== ENCOUNTER 2022-07-27 16:24 | Emergency (ER) | payer OTHER ==
[~2022-07-27] VITALS: Ht 165 cm; Wt 82.0 kg
[~2022-07-27 16:24] MED LIST changes: -CIPR500T5 PO; -ONDA4TAB11 PO; -PANT40TA2 PO; -TRAM-42 PO
[2022-07-27] MEDS ORDERED: KETOROLAC 30 MG/ML VIAL IVP STA (18:04)
[2022-07-27] MEDS ORDERED: ONDANSETRON 4 MG/2 ML (SDV) Z0FRAN IVP ONE (18:15)
[2022-07-27] MEDS ORDERED: PANTOPRAZOLE 40 MG (PROTONIX) VIAL IV ONE (18:15)
[2022-07-27] MEDS ORDERED: IOHEXOL 350 MG/ML 100 ML (OMNIPAQUE 350) VIAL IV ONE (18:15)
[2022-07-27] MEDS ORDERED: NS 100 ML (IVPB) BAG IV ONE (18:15)
[2022-07-27] MEDS ORDERED: HOLD METFORMIN - RECEIVED CONTRAST 20 ML VIAL IV SCH (18:15)
[2022-07-27] MEDS ORDERED: LACTATED RINGERS 1,000 ML IV ONE (18:15)
[2022-07-27 18:28] LABS: BILIRUBIN,URINE NEGATIVE (NEGATIVE); CLARITY,URINE CLEAR; COLOR,URINE YELLOW; GLUCOSE, URINE (UA) NEGATIVE (NEGATIVE); KETONES,URINE TRACE (NEGATIVE); LEUKOCYTE ESTERASE ,URINE NEGATIVE (NEGATIVE); NITRITE,URINE NEGATIVE (NEGATIVE); PROTEIN,URINE NEGATIVE (NEGATIVE)
[2022-07-27 18:43] LABS: BACTERIA,URINE FEW /HPF; WBC,URINE RARE /HPF
[2022-07-27 18:45] LABS: BASOPHILS # (AUTO) 0.1 10^3/uL (0.0-0.1); BASOPHILS % (AUTO) 0 % (0-10); EOSINOPHILS # (AUTO) 0.1 10^3/uL (0.0-0.3); EOSINOPHILS % (AUTO) 1 % (0-10); HEMATOCRIT 40 % (35-52); HEMOGLOBIN 13.2 g/dL (11.5-16.0); LYMPHOCYTES # (AUTO) 2.2 10^3/uL (1.0-4.0); LYMPHOCYTES % (AUTO) 16 % (12-44); MEAN CORPUSCULAR HEMOGLOBIN 31 pg (25-34); MEAN CORPUSCULAR HGB CONC 33 g/dL (32-36); MEAN CORPUSCULAR VOLUME 92 fL (80-99); MEAN PLATELET VOLUME 9.6 fL (9.0-12.2); MONOCYTES # (AUTO) 0.9 10^3/uL (0.0-1.0); MONOCYTES % (AUTO) 7 % (0-12); NEUTROPHILS # (AUTO) 10.9 10^3/uL (1.8-7.8); NEUTROPHILS % (AUTO) 77 % (42-75); PLATELET COUNT 178 10^3/uL (130-400); WHITE BLOOD COUNT 14.2 10^3/uL (4.3-11.0)
[2022-07-27 18:53] LABS: ALBUMIN 3.9 GM/DL (3.2-4.5); POTASSIUM 3.8 MMOL/L (3.6-5.0)
[2022-07-27 18:56] LABS: TOTAL PROTEIN 7.4 GM/DL (6.4-8.2)
[2022-07-27 18:57] LABS: BILIRUBIN,TOTAL 0.8 MG/DL (0.1-1.0)
[2022-07-27 18:59] LABS: CREATININE SERUM 0.95 MG/DL (0.60-1.30)
--- NOTE | 2022-07-27 19:17 | Diagnostic Imaging Report ---
PROCEDURE: CT abdomen and pelvis with contrast. TECHNIQUE: Multiple contiguous axial images were obtained through the abdomen and pelvis after administration of intravenous contrast. Auto Exposure Controls were utilized during the CT exam to meet ALARA standards for radiation dose reduction. All CT scans use one or more of the following dose optimizing techniques: automated exposure control, MA and/or KvP adjustment based on patient size and exam type or iterative reconstruction. INDICATION: Epigastric pain. COMPARISON: 10/25/2021. FINDINGS: There is no focal hepatic or splenic abnormality. Gallbladder, pancreas and right adrenal gland are unremarkable. Calcified small left adrenal gland is again noted. Kidneys have a normal appearance. There is no hydronephrosis. No free fluid is seen within the abdomen or pelvis. The appendix is surgically absent. Unopacified bladder is unremarkable in appearance. IMPRESSION: No evidence of acute abnormality or adverse change. Dictated by: Dictated on workstation # [id number]
[2022-07-27] MEDS ORDERED: PANT40TA2 PO (19:24)
[2022-07-27] MEDS ORDERED: TRAM-42 PO (19:24)
[2022-07-27] MEDS ORDERED: CIPR500T5 PO (19:24)
[2022-07-27] MEDS ORDERED: ONDA4TAB11 PO (19:24)
--- NOTE | 2022-07-27 19:24 | ED Abdominal Pain ---
General Chief Complaint: Abdominal/GI Problems Stated Complaint: ABDOMINAL PAIN Nursing Triage Note: ARRIVED VIA AMB TO TRIAGE WITH COMPLAINTS OF ABD PAIN. SAW DR BRITO TODAY AND IS SCHEDULED FOR A SCAN IN 2 WEEKS. STATES SHE CAN'T TAKE THE PAIN ANYMORE. Allergies and Home Medications Allergies Coded Allergies: Sulfa (Sulfonamide Antibiotics) (Verified Allergy, Unknown, "FEELS LIKE BURNING FROM INSIDE OUT, 05/11/20) Patient Home Medication List Discontinued Medications Docusate Sodium (Colace) 100 Mg Capsule, 100 MG PO BID Discontinued Reason: No Longer Taking Prescribed by: VEE BRITO on 10/25/211534 Last Action: Discontinued Hydrocodone/Acetaminophen (Hydrocodone-Acetamin 5-325 mg) 1 Each Tablet, 1 EACH PO Q4H PRN for PAIN-MODERATE (5-7) Discontinued Reason: No Longer Taking Prescribed by: VEE BRITO on 10/25/211534 Last Action: Discontinued Prednisone (Prednisone) 20 Mg Tab, 0 PO UD Discontinued Reason: No Longer Taking Prescribed by: CARLOS COLLIER on 05/13/20 0925 Last Action: Discontinued Past Kqwyjtg-Uoxgoq-Hchjos Hx Patient Social History Use of E-Cig and/or Vaping dev: Yes Substance use?: No Alcohol Use?: Yes Alcohol Frequency: Once in a while Seasonal Allergies Seasonal Allergies: Yes Past Medical History Surgeries: Yes (D&C X2, L KNEE SCOPE X2) Nose, Orthopedic, Tubal Ligation Respiratory: No Currently Using CPAP: No Currently Using BIPAP: No Cardiac: No Neurological: No Genitourinary: No Gastrointestinal: No Musculoskeletal: No Endocrine: No Cancer: No Psychosocial: No Integumentary: No Blood Disorders: No Family Medical History No Pertinent Family Hx Physical Exam Vital Signs Vital Signs - First Documented 07/27/22 16:45 Temp 37.3 Pulse 92 Resp 16 B/P (MAP) 119/81 (94) Pulse Ox 96 O2 Delivery Room Air Capillary Refill : Less Than 3 Seconds Height/Weight/BMI Height: '" Weight: lbs. oz. kg; 30.00 BMI Method: Progress/Results/Core Measures Results/Orders Lab Results Laboratory Tests Test 07/27/22 17:17 07/27/22 18:30 Range/Units Urine Color YELLOW Urine Clarity CLEAR Urine pH 6.0 5-9 Urine Specific [place] 1.020 1.016-1.022 Urine Protein NEGATIVE NEGATIVE Urine Glucose (UA) NEGATIVE NEGATIVE Urine Ketones TRACE H NEGATIVE Urine Nitrite NEGATIVE NEGATIVE Urine Bilirubin NEGATIVE NEGATIVE Urine Urobilinogen 1.0 < = 1.0 MG/DL Urine Leukocyte Esterase NEGATIVE NEGATIVE Urine RBC (Auto) TRACE-I H NEGATIVE Urine RBC NONE /HPF Urine WBC RARE /HPF Urine Squamous Epithelial Cells 2-5 /HPF Urine Crystals NONE /LPF Urine Bacteria FEW H /HPF Urine Casts NONE /LPF Urine Mucus SMALL H /LPF Urine Culture Indicated YES White Blood Count 14.2 H 4.3-11.0 10^3/uL Red Blood Count 4.30 3.80-5.11 10^6/uL Hemoglobin 13.2 11.5-16.0 g/dL Hematocrit 40 35-52 % Mean Corpuscular Volume 92 80-99 fL Mean Corpuscular Hemoglobin 31 25-34 pg Mean Corpuscular Hemoglobin Concent 33 32-36 g/dL Red Cell Distribution Width 12.5 10.0-14.5 % Platelet Count 178 130-400 10^3/uL Mean Platelet Volume 9.6 9.0-12.2 fL Immature Granulocyte % (Auto) 0 % Neutrophils (%) (Auto) 77 H 42-75 % Lymphocytes (%) (Auto) 16 12-44 % Monocytes (%) (Auto) 7 0-12 % Eosinophils (%) (Auto) 1 0-10 % Basophils (%) (Auto) 0 0-10 % Neutrophils # (Auto) 10.9 H 1.8-7.8 10^3/uL Lymphocytes # (Auto) 2.2 1.0-4.0 10^3/uL Monocytes # (Auto) 0.9 0.0-1.0 10^3/uL Eosinophils # (Auto) 0.1 0.0-0.3 10^3/uL Basophils # (Auto) 0.1 0.0-0.1 10^3/uL Immature Granulocyte # (Auto) 0.0 0.0-0.1 10^3/uL Sodium Level 136 135-145 MMOL/L Potassium Level 3.8 3.6-5.0 MMOL/L Chloride Level 103 98-107 MMOL/L Carbon Dioxide Level 24 21-32 MMOL/L Anion Gap 9 5-14 MMOL/L Blood Urea Nitrogen 10 7-18 MG/DL Creatinine 0.95 0.60-1.30 MG/DL Estimat Glomerular Filtration Rate 78 BUN/Creatinine Ratio 11 Glucose Level 86 70-105 MG/DL Calcium Level 9.0 8.5-10.1 MG/DL Corrected Calcium 9.1 8.5-10.1 MG/DL Total Bilirubin 0.8 0.1-1.0 MG/DL Aspartate Amino Transf (AST/SGOT) 11 5-34 U/L Alanine Aminotransferase (ALT/SGPT) 22 0-55 U/L Alkaline Phosphatase 67 40-136 U/L Total Protein 7.4 6.4-8.2 GM/DL Albumin 3.9 3.2-4.5 GM/DL Amylase Level 43 25-125 U/L Lipase 12 8-78 U/L Serum Test, Qualitative NEGATIVE NEGATIVE My Orders Orders - ARMANDO ROWELL DO Ed Iv/Invasive Line Start (07/27/22 18:04) Amylase (07/27/22 18:04) Cbc With Automated Diff (07/27/22 18:04) Comprehensive Metabolic Panel (07/27/22 18:04) Hcg,Qualitative Serum (07/27/22 18:04) Lipase (07/27/22 18:04) Ua Culture If Indicated (07/27/22 18:04) Ct Abdomen/Pelvis W (07/27/22 18:04) Ed Iv/Invasive Line Start (07/27/22 18:04) Lactated Ringers (Lr 1000 Ml Iv Solution (07/27/22 18:15) Ondansetron Injection (Zofran Injectio (07/27/22 18:15) Ketorolac Injection (Toradol Injection) (07/27/22 18:04) Pantoprazole Injection (Protonix Injecti (07/27/22 18:15) Iohexol Injection (Omnipaque 350 Mg/Ml 1 (07/27/22 18:15) Received Contrast (Hold Metformin- Contr (07/27/22 18:15) Ns (Ivpb) (Sodium Chloride 0.9% Ivpb Bag (07/27/22 18:15) Urine Culture (07/27/22 17:17) Medications Given in ED Current Medications Medications Dose Ordered Sig/Liam Route Start Time Stop Time Status Last Admin Dose Admin Iohexol 100 ml ONCE ONCE IV 07/27/22 18:15 07/27/22 18:16 DC 07/27/22 19:00 80 ML Lactated Ringer's 1,000 ml @ 0 mls/hr Q0M ONCE IV 07/27/22 18:15 07/27/22 18:16 DC 07/27/22 18:34 0 MLS/HR Ondansetron HCl 4 mg ONCE ONCE IVP 07/27/22 18:15 07/27/22 18:16 DC 07/27/22 18:34 4 MG Pantoprazole 40 mg ONCE ONCE IV 07/27/22 18:15 07/27/22 18:16 DC 07/27/22 18:34 40 MG Sodium Chloride 100 ml ONCE ONCE IV 07/27/22 18:15 07/27/22 18:16 DC 07/27/22 19:00 80 ML Vital Signs/I&O 07/27/22 16:45 Temp 37.3 Pulse 92 Resp 16 B/P (MAP) 119/81 (94) Pulse Ox 96 O2 Delivery Room Air Blood Pressure Mean: [address] ABDOMEN/PELVIS--PER RADIOLOGIST REPORT AT 1921 FINDINGS: There is no focal hepatic or splenic abnormality. Gallbladder, pancreas and right adrenal gland are unremarkable. Calcified small left adrenal gland is again noted. Kidneys have a normal appearance. There is no hydronephrosis. No free fluid is seen within the abdomen or pelvis. The appendix is surgically absent. Unopacified bladder is unremarkable in appearance. IMPRESSION: No evidence of acute abnormality or adverse change. Reviewed: Reviewed by Me Departure Impression Primary Impression: Epigastric abdominal pain Additional Impression: UTI (urinary tract infection) Disposition: 01 HOME, SELF-CARE Condition: Stable Departure-Patient Inst. Referrals: VEE BRITO DO NO,LOCAL PHYSICIAN (PCP) Primary Care Physician Patient Instructions: Abdominal Pain, Adult ED, Urinary Tract Infection, Adult ED Add. Discharge Instructions: CLEAR LIQUIDS--WATER, BROTH, JELLO, GATORADE WHEN YOUR PAIN AND NAUSEA IS BETTER, ADD BRATS DIET TO CLEAR LIQUIDS--BANANAS, RICE, APPLESAUCE, TOAST, SALTINES CALL DR. BRITO'S OFFICE IN THE MORNING TO SEE ABOUT GETTING HIDA SCAN DONE SOONER. FOLLOW UP WITH DR. BRITO FOR FURTHER CARE, RETURN TO ER IF SYMPTOMS WORSEN All discharge instructions reviewed with patient and/or family. Voiced understanding. Scripts Tramadol HCl (Ultram) 50 Mg Tablet 50 MG PO Q4H for Pain, #20 TAB Prov: ARMANDO ROEWLL DO 07/27/22 Ciprofloxacin HCl (Ciprofloxacin HCl) 500 Mg Tablet 500 MG PO BID, #14 TAB Prov: ARMANDO ROWELL DO 07/27/22 Pantoprazole Sodium (Protonix) 40 Mg Tablet.dr 40 MG PO DAILY, #15 TAB Prov: ARMANDO ROWELL DO 07/27/22 Ondansetron (Ondansetron Odt) 4 Mg Tab.rapdis 4 MG PO Q4H for Nausea/Vomiting, #10 TAB Prov: ARMANDO ROWELL DO 07/27/22 ARMANDO ROWELL DO Jul 27, 2022 19:24
[2022-07-27 19:36] VITALS: BP 123/80
== END 2022-07-27 19:36 | disposition home or self-care (01) ==
LOC: EDUNIT# 16:24 → ER 16:26
DX: N39.0 Urinary tract infection, site not specified (principal); R10.13 Epigastric pain; F17.290 Nicotine dependence, other tobacco product, uncomplicated; Z32.02 Encounter for pregnancy test, result negative; Z88.1 Allergy status to other antibiotic agents; Z28.310 Unvaccinated for COVID-19
CPT/HCPCS: 36415; 74177; 80053; 81000; 82150; 83690; 84703; 85025; 87088

== ENCOUNTER → 2022-07-27 | Outpatient (CLI) | payer OTHER ==
[~2022-07-27] MED LIST changes: +CIPR500T5 PO; +DOCU-143 PO; +ONDA4TAB11 PO; +PANT40TA2 PO; +TRAM-42 PO
[2022-07-27 07:34] LABS: BASOPHILS # (AUTO) 0.1 10^3/uL (0.0-0.1); BASOPHILS % (AUTO) 0 % (0-10); EOSINOPHILS # (AUTO) 0.1 10^3/uL (0.0-0.3); EOSINOPHILS % (AUTO) 0 % (0-10); HEMATOCRIT 41 % (35-52); HEMOGLOBIN 13.7 g/dL (11.5-16.0); LYMPHOCYTES # (AUTO) 1.8 10^3/uL (1.0-4.0); LYMPHOCYTES % (AUTO) 11 % (12-44); MEAN CORPUSCULAR HEMOGLOBIN 31 pg (25-34); MEAN CORPUSCULAR HGB CONC 33 g/dL (32-36); MEAN CORPUSCULAR VOLUME 92 fL (80-99); MEAN PLATELET VOLUME 9.5 fL (9.0-12.2); MONOCYTES # (AUTO) 1.1 10^3/uL (0.0-1.0); MONOCYTES % (AUTO) 7 % (0-12); NEUTROPHILS # (AUTO) 13.4 10^3/uL (1.8-7.8); NEUTROPHILS % (AUTO) 82 % (42-75); PLATELET COUNT 171 10^3/uL (130-400); WHITE BLOOD COUNT 16.4 10^3/uL (4.3-11.0)
[2022-07-27 07:47] LABS: ALBUMIN 4.1 GM/DL (3.2-4.5); POTASSIUM 3.9 MMOL/L (3.6-5.0)
[2022-07-27 07:48] LABS: CALCIUM 9.1 MG/DL (8.5-10.1)
[2022-07-27 07:49] LABS: TOTAL PROTEIN 7.6 GM/DL (6.4-8.2)
[2022-07-27 07:51] LABS: BILIRUBIN,TOTAL 1.1 MG/DL (0.1-1.0)
[2022-07-27 07:53] LABS: CREATININE SERUM 1.05 MG/DL (0.60-1.30)
[2022-07-27 08:08] LABS: EOSINOPHILS % (MANUAL) 1 %; LYMPHOCYTES % (MANUAL) 11 %; MONOCYTES % (MANUAL) 8 %; NEUTROPHILS % (MANUAL) 80 %; RBC MORPH NORMAL
--- NOTE | 2022-07-27 10:46 | Diagnostic Imaging Report ---
EXAMINATION: Ultrasound gallbladder from 07/27/2022. TECHNIQUE: Multiple real-time grayscale images were obtained over the right upper quadrant in various projections. INDICATION: Right upper quadrant pain. FINDINGS: Liver is unremarkable. No intrahepatic biliary dilatation is seen. Gallbladder wall does not appear thickened. There are no stones or sludge. No pericholecystic fluid. Common duct is 0.3 cm in thickness which is considered normal. Pancreas is partially obscured. Visualized aspects are unremarkable. Visualized proximal aorta and IVC are unremarkable. Right kidney is 10.4 cm in length. There is no hydronephrosis. There is no ascites. IMPRESSION: 1. Visualized right upper quadrant structures are unremarkable. Dictated by: Dictated on workstation # [id number]
== END ==
LOC: RAD 07:45
PROVIDERS: ATTEND Surgery
DX: R10.11 Right upper quadrant pain (principal)
CPT/HCPCS: 36415; 76705; 80053; 85007; 85027

== ENCOUNTER → 2022-08-02 | Outpatient (CLI) | payer OTHER ==
[~2022-08-02] MED LIST changes: +CATHETER FLUSH 10 ML SYR IVP PRN; +CIPR500T5 PO; +ONDA4TAB11 PO; +PANT40TA2 PO; +TRAM-42 PO
--- NOTE | 2022-08-02 10:26 | Diagnostic Imaging Report ---
INDICATION: Right upper quadrant pain COMPARISON: CT abdomen and pelvis from 07/27/2022 TECHNIQUE: Anterior scintigraphic imaging of the abdomen was performed after the intravenous administration of 4.98 mCi Tc-99m Choletec. FINDINGS: The upper abdomen was imaged for 60 minutes with the gamma camera. There is prompt homogeneous uptake of radiopharmaceutical by the liver. There is activity in the common duct and gallbladder by 15 minutes. Small bowel activity is seen by 30 minutes. After 60 minutes, the patient received 8 oz of ensure by mouth. After 45 minutes, the gallbladder ejection fraction was calculated to be 30% which is diminished (normal is greater than 35%). IMPRESSION: 1. Patent common and cystic bile ducts. 2. Mild gallbladder dysfunction with ejection fraction of only 30%. This can be seen with biliary dyskinesia, chronic cholecystitis, and other less common etiologies. Dictated by: Dictated on workstation # [id number]
== END ==
LOC: CARD 07:00
PROVIDERS: ATTEND Surgery
DX: R10.11 Right upper quadrant pain (principal)
CPT/HCPCS: 78227; A9537

== ENCOUNTER 2022-08-08 05:28 | Outpatient (CLI) | payer OTHER ==
[~2022-08-08] VITALS: Ht 165 cm; Wt 82.6 kg
[~2022-08-08 05:28] MED LIST changes: -CATHETER FLUSH 10 ML SYR IVP PRN
[2022-08-08] MEDS ORDERED: METR-145 PO (09:35)
[2022-08-08] MEDS ORDERED: LORA10TA76 PO (09:35)
[2022-08-09] MEDS ORDERED: ACHD5005 PO (15:15)
[2022-08-09] MEDS ORDERED: DOCU-143 PO (15:15)
== END 2022-08-08 09:52 | disposition home or self-care (01) ==
LOC: PREOP 05:28
PROVIDERS: ATTEND Surgery
DX: Z01.818 Encounter for other preprocedural examination (principal)

== ENCOUNTER 2022-08-09 09:52 | Day surgery (SDC) | payer OTHER ==
[2022-08-09] VITALS (12 sets, daily range): BP systolic 93–115; BP diastolic 50–80
[~2022-08-09] VITALS: Ht 165 cm; Wt 82.6 kg
[~2022-08-09 09:52] MED LIST changes: +LORA10TA76 PO; +METR-145 PO
--- NOTE | 2022-08-09 10:07 | Progress Note-Pre Operative ---
Pre-Operative Progress Note Date of Available H&P: Aug 04, 2022 Date H&P Reviewed: Aug 09, 2022 Time H&P Reviewed: 10:06 History & Physical: H&P Reviewed, Patient Examed, No changes noted Pre-Operative Diagnosis: biliary dyskinesia VEE BRITO DO Aug 09, 2022 10:07
[2022-08-09] MEDS: LACTATED RINGERS 1,000 ML IV PRN ×2 (10:47→14:01)
[2022-08-09] MEDS ORDERED: ceFAZolin INJECTION 2,000 MG ONE (10:47)
[2022-08-09] MEDS ORDERED: NS (IVPB) 50 ML ONE (10:47)
[2022-08-09] MEDS ORDERED: LACTATED RINGERS 1,000 ML IV PRN (11:00)
[2022-08-09] MEDS ORDERED: BUPIVACAINE 0.5% 30 ML (SENSORCAINE) VIAL ONE (12:19)
[2022-08-09] MEDS ORDERED: proPOfol 200 MG/20 ML (DIPRIVAN) VIAL IV ONE (12:36)
[2022-08-09] MEDS ORDERED: fentaNYL INJ 100 MCG/2 ML AMP ONE ×2 (12:36→14:24)
[2022-08-09] MEDS ORDERED: ONDANSETRON 4 MG/2 ML (SDV) Z0FRAN ONE ×2 (12:36→14:14)
[2022-08-09] MEDS ORDERED: LIDOCAINE PF 2% 5 ML (XYLOCAINE) VIAL ONE (12:36)
[2022-08-09] MEDS ORDERED: SEVOFLURANE (ULTANE) 15 ML INHAL SOLN ONE (12:36)
[2022-08-09] MEDS ORDERED: ROCURONIUM 10 MG/ML 5 ML SYRINGE IV ONE (12:36)
[2022-08-09] MEDS ORDERED: MIDAZOLAM 2 MG/2 ML (VERSED) VIAL ONE (12:36)
[2022-08-09] MEDS: ceFAZolin INJECTION 2,000 MG in NS (IVPB) 50 ML IV ONE ×2 (12:41→12:50)
[2022-08-09] MEDS ORDERED: GLYCOPYRROLATE 0.2 MG/ML (ROBINUL) 2 ML VIAL ONE (13:35)
[2022-08-09] MEDS ORDERED: NEOSTIGMINE 3 MG/3 ML VIAL ONE (13:35)
--- NOTE | 2022-08-09 13:58 | Anesthesia-General Post-Op ---
General Patient Condition Mental Status/LOC: Same as Preop Cardiovascular: Satisfactory Nausea/Vomiting: Absent Respiratory: Satisfactory Pain: Controlled Complications: Absent Post Op Complications Complications None Follow Up Care/Instructions Patient Instructions None needed. Anesthesia/Patient Condition Patient Condition Patient is doing well, no complaints, stable vital signs, no apparent adverse anesthesia problems. No complications reported per nursing. URIEL PITTS CRNA Aug 09, 2022 13:58
[2022-08-09] MEDS ORDERED: fentaNYL INJ 100 MCG/2 ML AMP IVP ONE (14:00)
[2022-08-09] MEDS ORDERED: MEPERIDINE (DEMEROL) INJ 50 MG/ML IVP ONE (14:00)
[2022-08-09] MEDS ORDERED: morphine INJ 10 MG/ML 1ML (SYR OR VIAL) IVP ONE (14:00)
[2022-08-09] MEDS ORDERED: morphine INJ 10 MG/ML 1ML (SYR OR VIAL) ONE (14:14)
[2022-08-09] MEDS: ONDANSETRON 4 MG/2 ML (SDV) Z0FRAN IVP PRN ×2 (14:19→15:57)
[2022-08-09] MEDS ORDERED: DOCU-143 PO (15:15)
[2022-08-09] MEDS ORDERED: ACHD5005 PO (15:15)
--- NOTE | 2022-08-09 15:17 | Discharge Inst-Simple/Standard ---
Discharge Inst-Standard Discharge Medications New, Converted or Re-Newed RX: RX on Chart Patient Instructions/Follow Up Plan of Care/Instructions/FU: 2 weeks Shanda Activity as Tolerated: No Discharge Diet: Regular Diet Other Inst to Patient Follow up Appt: Make appointment for 2 weeks. Instructions: No lifting greater than 10 pounds. No strenuous activity. May shower in 24 hours, no tub bath or soaking. Use incentive spirometer at home as directed. No Smoking Skin/Wound Care: You have special glue over incision, it will fall off on it's own. Symptoms to Report: Appetite Changes, Extremity Discoloration, Numbness/Tingling, Swelling Increased, Bleeding Excessive, Eyesight Changes, Pain Increased, Urine Color Change, Constipation(Persistent), Fever over 101 degree F, Pain/Pressure in ches t, Urinating Difficulty, Cough Up/Vomit Blood, Heart Beat Irreg/Pounding, Pain/Pressure in jaw, Vaginal Bleeding Increase, Cramps in feet or legs, Lightheadedness, Pain/Pressure in shoulder, Diarrhea(Persistent), Memory Changes Suddenly, Questions/Concerns, Weight gain consecutive days, Dizziness/Fainting, Nausea/Vomiting, Shortness of Breath, Weight gain over 2 pounds. If eyes or skin turn yellow notify physician. If questions or concerns contact your physician Or seek help at emergency department. VEE BRITO DO Aug 09, 2022 15:17
--- NOTE | 2022-08-09 15:18 | Progress Note-Post Operative ---
Post-Operative Progess Note Surgeon (s)/Pearl Restorer (s) Surgeon VEE BRITO DO Pearl Restorer: Dr. Claudio to assist in retraction dissection and closure. Pre-Operative Diagnosis biliary dyskinesia Post-Operative Diagnosis same Procedure & Operative Findings Date of Procedure 08/09/22 Procedure Performed/Findings PROCEDURE: Laparoscopic cholecystectomy with intraoperative cholangiogram. COMPLICATIONS: None. PROCEDURE: The patient was taken to the operating suite and was prepped and draped in sterile fashion. A surgical pause was performed. Just superior to the umbilicus, a 12 mm incision was made. Dissection was taken down to the fascia, which was then scored and grasped with a Harley and the abdomen was then entered. A 0 Vicryl suture was placed in a [id number] fashion and a Estrada trocar was placed and secured. Pneumoperitoneum was achieved. A 5mm trochar place in the subxyphoid and 2 in the right upper quadrant. The gallbladder was then grasped and elevated. The cystic duct, and cystic artery were then dissected out. Clip was placed on the distal portion of the cystic duct which was then partially transected. An arrow catheter was inserted into the duct. The cholangiogram was then performed. No filing defects and contrast made its way into the duodenum. Catheter removed. Clips were placed on proximal portion of the cystic duct and then the duct was then transected. Clips were placed along the proximal and distal portion of the cystic artery which was then transected. Hook cautery was used to dissect the gallbladder from the gallbladder fossa achieving hemostasis. The gallbladder was placed in an Endobag and removed through the 12 mm trocar site. The abdomen was then reinspected. Copious amounts of irrigation were used to irrigate the abdomen and there were no signs of active bleeding. Hemostasis had been achieved. The 12 mm fascial defect was then closed with 0 Vicryl suture that had been placed in a [id number]-[id number] fashion. The abdomen was then desufflated, the trocars were removed. The abdomen was then washed and dried. The skin was then closed using 4-0 Monocryl in a subcuticular fashion. The abdomen was washed and dried and Skin Affix was place over incisions. Patient tolerated the procedure well without any complications and was taken to the recovery room in stable condition. Anesthesia Type general Estimated Blood Loss Estimated blood loss (mL): minimal Specimens/Packing Specimens Removed gallbladder VEE BRITO DO Aug 09, 2022 15:18
[2022-08-09] MEDS ORDERED: HYDROcodone/APAP 5 MG/325 MG (LORTAB) TAB ONE (15:35)
[2022-08-09] MEDS ORDERED: HYDROcodone/APAP 5 MG/325 MG (LORTAB) TAB PO ONE (15:45)
--- NOTE | 2022-08-09 16:29 | Diagnostic Imaging Report ---
INDICATION: Cholecystectomy. FINDINGS: 1.5 seconds of fluoroscopy time utilized during intraoperative cholangiography. Submitted images showed normal caliber of the common hepatic and common bile ducts spilling freely into the duodenal lumen with no pathological finding revealed. No ductal filling defect. IMPRESSION: There are no abnormalities identified at the images submitted from intraoperative cholangiography. Dictated by: Dictated on workstation # [id number]
== END 2022-08-09 16:00 ==
LOC: SDC 09:52
PROVIDERS: ATTEND Surgery
DX: K82.8 Other specified diseases of gallbladder (principal); F17.210 Nicotine dependence, cigarettes, uncomplicated
CPT/HCPCS: 76000; 84703; 87081; 88304

== ENCOUNTER → 2023-01-25 | Outpatient (CLI) | payer OTHER ==
--- NOTE | 2023-01-25 09:06 | Diagnostic Imaging Report ---
CLINICAL INDICATION: Patient with recurrent sinus infections, recently finished medicine for sinus disease. Patient has past surgical history of sinus surgery. EXAM: Axial CT scan of the maxillofacial structures without IV contrast . Coronal and sagittal reformations were performed. Auto Exposure Controls were utilized during the CT exam to meet ALARA standards for radiation dose reduction. COMPARISON: CT scan of the sinuses without contrast dated 04/29/2020. FINDINGS: PARANASAL SINUSES: Again seen high density seen within the right maxillary sinus region which may represent inspissated secretions or fungal elements. FRONTAL: There is moderate to large amounts of consolidation involving the frontal sinuses with the right side affected the most. The frontal sinus disease has progressed. ETHMOID: There are large amounts of lobulated mucosal thickening involving the ethmoid sinus which has progressed. MAXILLARY: There is complete consolidation of the right maxillary sinus which has progressed. There is moderate mucosal thickening involving left maxillary sinus which has improved. SPHENOID: There is mild mucosal thickening involving the sphenoid sinus which has slightly improved. OTHER PARANASAL SINUS FINDINGS: There is lobulated polypoid-like mucosal thickening involving the nasal cavity region and ethmoid sinuses. Ostiomeatal unit regions are obstructed. NASAL SEPTUM: Relatively midline. No significant bony spurs. VISUALIZED TEMPORAL BONE STRUCTURES: Unremarkable. BONY STRUCTURES: Unremarkable. EXTRACRANIAL SOFT TISSUE/ ORBITS: Unremarkable. IMPRESSION: 1: There is diffuse paranasal sinusitis with mixed changes, as described above. Again seen high density material within the right maxillary sinus which may represent inspissated secretions or fungal elements. 2: There is polypoid-like mucosal thickening involving the nasal cavity. Dictated by: Dictated on workstation # [id number]
== END ==
LOC: RAD 07:40
PROVIDERS: ATTEND Otolaryngology Otolaryngology/Facial Plastic Surgery
DX: J33.9 Nasal polyp, unspecified (principal); J32.9 Chronic sinusitis, unspecified; Z98.890 Other specified postprocedural states
CPT/HCPCS: 70486